=== PATIENT | female | born 1955 | race African-American/Black ===

== ENCOUNTER 2023-07-20 11:46 | Outpatient (CLI) | payer OTHER | END 2023-07-20 11:47 | disposition home or self-care (01) | LOC: CSHMAMMO 11:46 | PROVIDERS: ATTEND Family Medicine | DX: Z12.31 Encounter for screening mammogram for malignant neoplasm of breast (principal) | CPT/HCPCS: 77063; 77067 ==

== ENCOUNTER 2024-05-01 07:11 | Emergency (ER) | payer OTHER ==
[2024-05-01] MEDS ORDERED: Ondansetron PF 4 MG/2 ML Vial ONE (07:51)
[2024-05-01] MEDS ORDERED: Morphine 4 MG/ML VIAL ONE (07:51)
[2024-05-01 08:24] LABS: #Basophils 0.01 10x3/uL (0.0-0.2); #Monocytes 0.73 10x3/uL (0.0-1.1); #Neutrophils 7.43 10x3/uL (1.5-8.4); %Basophils 0.1 % (0.0-2.0); %Lymphocytes 19.1 % (18.0-47.0); %Monocytes 7.2 % (0.0-10.0); %Neutrophils 73.2 % (40.0-75.0); Hematocrit 49.7 % (34.9-44.5); Hemoglobin 16.2 g/dL (12.0-15.5); Mean Corpuscular HGB CONC 32.6 g/dL (32.0-36.0); Mean Corpuscular Hemoglobin 29.2 pg (27.0-33.0); Mean Corpuscular Volume 89.5 fL (81.6-98.3); Mean Platelet Volume 10.1 fL (7.4-10.4); Platelet Count 314 10x3/uL (150-450); RBC Distribution Width 14.1 % (11.5-14.5); Red Blood Cell (RBC) Count 5.55 10x6/uL (3.90-5.03); White Blood Cell (WBC) Count 10.2 10x3/uL (3.5-10.5)
[2024-05-01 08:41] LABS: ALT (SGPT) 16 U/L (8-55); AST (SGOT) 21 U/L (5-34); Albumin 5.2 g/dL (3.4-4.8); Alkaline Phosphatase 69 U/L (40-110); Anion Gap 28 mmol/L (10-20); BUN (Urea Nitrogen) 49 mg/dL (9.8-20.1); Bilirubin, Total 0.5 mg/dL (0.2-1.2); Calc. Creatinine Clearance 0 mL/min (70-130); Calcium 11.5 mg/dL (7.8-10.44); Carbon Dioxide 24 mmol/L (23-31); Chloride 93 mmol/L (98-107); Estimated GFR 15; Globulin 4.9 g/dL (2.4-3.5); Glucose 187 mg/dL (80-115); Lipase 30 U/L (8-78); Potassium 3.4 mmol/L (3.5-5.1); Protein, Total 10.1 g/dL (5.8-8.1); Sodium 142 mmol/L (136-145)
[2024-05-01 08:43] LABS: Troponin I 0.087 ng/mL (< 0.028)
[2024-05-01 08:44] LABS: Critical Call Chem-Lactate NUR.JS4@0840
[2024-05-01 11:36] LABS: Lactic Acid 3.2 mmol/L (0.5-2.2)
== END 2024-05-01 11:40 | disposition short-term general hospital (02) ==
LOC: CSHERS 07:11
DX: K56.2 Volvulus (principal); N17.9 Acute kidney failure, unspecified; I24.89 Other forms of acute ischemic heart disease; E87.20 Acidosis, unspecified; I10 Essential (primary) hypertension
CPT/HCPCS: 74176; 80053; 83605; 83690; 83735; 83880; 84484; 85025; 93005; 96374; 96375; 99285; J2272; J2405; 36415